=== PATIENT | female | born 1995 ===

== ENCOUNTER 2021-07-06 19:36 | Observation (INO) ==
[2021-07-06] MEDS ORDERED: SODIUM CHLORIDE 0.9% 1000ML 1,000 ML IV SCH (20:00)
[2021-07-06 20:19] LABS: Appearance Urine Clear (Clear); Bilirubin Urine Negative (Negative); Blood Urine Negative (Negative); Color Urine Yellow; Glucose Urine UA Negative (Negative); Ketones Urine Negative (Negative); Leukocyte Esterase Urine Negative (Negative); Nitrite Urine Negative (Negative); Protein Urine Negative (Negative); Specific Gravity Urine 1.003 (1.000-1.030); Urobilinogen Urine Negative (Negative)
--- NOTE | 2021-07-06 20:21 | Emergency Department Note ---
Impression & Plan Vaginal bleeding, Fever, Retained products of conception ED Provider Note INFORMANT: Patient ED PROVIDER(S): Jack Rollins MD CHIEF COMPLAINT: Vaginal bleeding PLAN: Disposition: Admitted Condition: Guarded Outpatient prescription management: none Referral: None MEDICAL DECISION MAKING: Patient presented because of vaginal bleeding and fever. She had a miscarriage and was treated with misoprostol as she declined surgical intervention. Unfortunately she had continued symptoms. She had an IV established. Blood work was obtained. Ultrasound imaging ordered. The patient was found to be significantly more anemic with a hemoglobin of 6.9. No leukocytosis. Chemistry panel unremarkable. Patient's hCG had fallen from 6600 down to 3200. Consultation was made with of MANAGER [facility]MI[facility]. He evaluated the patient in the ER. He did asked for the patient to receive IV Ancef and this was ordered after discussing with pharmacy given her penicillin allergy. The patient was typed originally for blood. She was admitted for operative management and D&E. Triage Nursing notes reviewed and agree them. Vital Signs: reviewed and remarkable for tachycardia Differential diagnosis: Etiologies such as endometritis, retained products, ectopic , dysfunction uterine bleeding, bleeding dyscrasia, trauma, infection, as well as others were entertained. Diagnostics interpreted by me: ECG: none Cardiac Monitoring: Cardiac monitoring ordered by me: The patient was placed on continuous cardiac monitoring and observed. It revealed a sinus tachycardia rhythm at 104 beats per minute without ectopy or evidence of dysrhythmia. Imaging studies: Ultrasound reveals findings concerning for retained products HPI: 7wks June 18 miscarriage Bleeding continued july 01, Seen by Mercedes given Misoprostol x4 Bleeding, cramping, July 05 Fever The patient is a 26year old female who presents to the Emergency Room with complaints of vaginal bleeding. Patient became about 7 weeks ago. She states on June 18 she had a miscarriage. Patient had bleeding that was cont inuing. She was seen July 01 in the ER. OB was consulted. She was seen by Dr Long. The patient states that she did not want to have surgery and was treated with misoprostol. Patient seemed to get somewhat better but then noted bleeding that started again on the , yesterday. She had cramping. Patient developed a fever today. Current pain is rated as 5/10. Patient felt weak and lightheade d. Pt denies LOC, headache,diaphoresis, visual changes, neck pain, chest pain, breathing difficulties, nausea, vomiting, back pain, melena, hematochezia, urinary symptoms, numbness, weakness, lymphadenopathy, rash, or other complaints. ROS: See above HPI for pertinent positives & negatives. A total of 10 systems reviewed and were otherwise negative. PAST MEDICAL HISTORY:See Below , miscarriage PAST SURGICAL HISTORY:See Below, FAMILY HISTORY:See Below SOCIAL HISTORY:See Below, refugee from [facility]. Lives with boyfriend. HOME MEDICATIONS:See Below ALLERGIES:See Below VITALS:See Below PHYSICAL EXAMINATION: GENERAL: Awake, alert, uncomfortable-appearing, in no distress HENT: Normocephalic, atraumatic. Oropharynx unremarkable. EYES: Pale conjunctiva. Sclera non-icteric. NECK: Inspection normal. Non-tender. Supple. No nuchal rigidity. FROM. No masses. RESPIRATORY: Clear to auscultation. No wheezes. No rales. Normal respiratory effort. CARDIAC: Normal rate. Normal rhythm. No murmurs. No rubs. Extremities warm and well perfused. Pulses equal. No JVD. GI: Soft, non-distended. No tenderness to palpation. No rebound or guarding. No masses. : Deferred MUSCULOSKELETAL: Atraumatic. Chest examination reveals no tenderness. The back is symmetrical on inspection without obvious abnormality. There is no CVA tenderness to palpation. No joint edema. LOWER EXTREMITIES: Calves are equal size bilaterally and non-tender. No edema. No discoloration. NEURO: Normal sensorium. No sensory or motor deficits noted. SKIN: No rash or jaundice noted. Jack Rollins MD Past Med/Surg History Medical History Anemia Anxiety Smoker Social History Smoking Status: Current every day smoker Tobacco Type: Cigarettes Feels Safe at Home: Yes Allergies Allergies Allergy/AdvReac Type Severity Reaction Status Date / Time glucose Allergy Mild Hives Unverified 07/06/21 19:53 Penicillins Allergy Mild Cough Unverified 07/06/21 19:53 Home Meds Home Medications Medication Instructions Recorded Confirmed ibuprofen 200 mg tablet (Advil) 0 mg PO DAILY PRN 07/06/21 07/06/21 Previous Rx's Medication Instructions Recorded ferrous sulfate 324 mg (65 mg 324 mg PO DAILY #30 tab 07/07/21 iron) tablet,delayed release ibuprofen 600 mg tablet 600 mg PO Q6H PRN #30 tab 07/07/21 Results & Data (ED) Vital Signs Vital Signs - 24 hr 07/06/21 19:36 07/06/21 19:40 07/06/21 19:46 Temperature 36.4 C L Temperature Source Temporal Artery Scan Pulse Rate 104 H 118 H Pulse Rate [Apical] Pulse Rate [Left Finger] Pulse Rate from SpO2 Sensor Pulse Rhythm Regular Pulse Rhythm [Apical] Pulse Rhythm [Left Finger] Pulse Strength Normal Pulse Strength [Apical] Respiratory Rate 20 16 24 Respiratory Effort / Characteristics Non-Labored Non-Labored Spontaneous Respiratory Depth Normal Normal Respiratory Pattern Regular Blood Pressure 112/75 Blood Pressure [Left Arm] Blood Pressure Mean 87 Blood Pressure Mean [Left Arm] Blood Pressure Position Sitting Blood Pressure Position [Left Arm] Pulse Oximetry 100 100 98 Oxygen Delivery Method Room Air Room Air Room Air Sepsis Recent Fever Within 48 Hours No Sepsis New/Unexplained Change in Mental Status No Sepsis Action Taken by Nursing No Action Required 07/06/21 21:03 07/06/21 21:36 07/06/21 21:45 Temperature Temperature Source Pulse Rate 103 H 108 H Pulse Rate [Apical] Pulse Rate [Left Finger] 102 H Pulse Rate from SpO2 Sensor 106 H Pulse Rhythm Pulse Rhythm [Apical] Pulse Rhythm [Left Finger] Regular Pulse Strength Pulse Strength [Apical] Respiratory Rate 18 22 21 Respiratory Effort / Characteristics Respiratory Depth Normal Respiratory Pattern Blood Pressure Blood Pressure [Left Arm] 147/85 H Blood Pressure Mean Blood Pressure Mean [Left Arm] 105 Blood Pressure Position Blood Pressure Position [Left Arm] Pulse Oximetry 100 100 100 Oxygen Delivery Method Sepsis Recent Fever Within 48 Hours Sepsis New/Unexplained Change in Mental Status Sepsis Action Taken by Nursing 07/06/21 21:46 07/06/21 22:00 07/06/21 22:27 Temperature Temperature Source Pulse Rate 104 H 105 H 109 H Pulse Rate [Apical] Pulse Rate [Left Finger] Pulse Rate from SpO2 Sensor Pulse Rhythm Pulse Rhythm [Apical] Pulse Rhythm [Left Finger] Pulse Strength Pulse Strength [Apical] Respiratory Rate 22 18 20 Respiratory Effort / Characteristics Respiratory Depth Respiratory Pattern Blood Pressure 109/63 113/64 Blood Pressure [Left Arm] Blood Pressure Mean 78 80 Blood Pressure Mean [Left Arm] Blood Pressure Position Blood Pressure Position [Left Arm] Pulse Oximetry 100 100 100 Oxygen Delivery Method Sepsis Recent Fever Within 48 Hours Sepsis New/Unexplained Change in Mental Status Sepsis Action Taken by Nursing 07/06/21 22:30 07/06/21 22:52 07/06/21 23:00 Temperature 37.0 C Temperature Source Oral Pulse Rate 111 H 95 H Pulse Rate [Apical] Pulse Rate [Left Finger] Pulse Rate from SpO2 Sensor 95 H Pulse Rhythm Pulse Rhythm [Apical] Pulse Rhythm [Left Finger] Pulse Strength Pulse Strength [Apical] Respiratory Rate 21 16 Respiratory Effort / Characteristics Respiratory Depth Respiratory Pattern Blood Pressure 122/67 107/59 L Blood Pressure [Left Arm] Blood Pressure Mean 85 75 Blood Pressure Mean [Left Arm] Blood Pressure Position Blood Pressure Position [Left Arm] Pulse Oximetry 100 99 Oxygen Delivery Method Sepsis Recent Fever Within 48 Hours Sepsis New/Unexplained Change in Mental Status Sepsis Action Taken by Nursing 07/06/21 23:30 07/06/21 23:50 07/07/21 00:00 Temperature Temperature Source Pulse Rate 100 H 94 H 93 H Pulse Rate [Apical] Pulse Rate [Left Finger] 86 Pulse Rate from SpO2 Sensor 100 H 95 H 96 H Pulse Rhythm Pulse Rhythm [Apical] Pulse Rhythm [Left Finger] Regular Pulse Strength Pulse Strength [Apical] Respiratory Rate 12 20 19 Respiratory Effort / Characteristics Non-Labored Respiratory Depth Normal Respiratory Pattern Blood Pressure 103/65 109/62 Blood Pressure [Left Arm] 109/62 Blood Pressure Mean 77 77 Blood Pressure Mean [Left Arm] 77 Blood Pressure Position Blood Pressure Position [Left Arm] Pulse Oximetry 99 100 100 Oxygen Delivery Method Room Air Sepsis Recent Fever Within 48 Hours Sepsis New/Unexplained Change in Mental Status Sepsis Action Taken by Nursing 07/07/21 00:24 07/07/21 00:30 07/07/21 00:43 Temperature 36.8 C Temperature Source Oral Pulse Rate 89 84 Pulse Rate [Apical] Pulse Rate [Left Finger] Pulse Rate from SpO2 Sensor 88 87 Pulse Rhythm Pulse Rhythm [Apical] Pulse Rhythm [Left Finger] Pulse Strength Pulse Strength [Apical] Respiratory Rate 23 21 Respiratory Effort / Characteristics Respiratory Depth Respiratory Pattern Blood Pressure 108/60 104/60 Blood Pressure [Left Arm] Blood Pressure Mean 76 74 Blood Pressure Mean [Left Arm] Blood Pressure Position Blood Pressure Position [Left Arm] Pulse Oximetry 100 99 Oxygen Delivery Method Sepsis Recent Fever Within 48 Hours Sepsis New/Unexplained Change in Mental Status Sepsis Action Taken by Nursing 07/07/21 00:46 07/07/21 01:11 07/07/21 01:12 Temperature 36.4 C L 36.8 C 36.7 C Temperature Source Oral Temporal Artery Scan Temporal Artery Scan Pulse Rate 90 113 H Pulse Rate [Apical] 104 H Pulse Rate [Left Finger] Pulse Rate from SpO2 Sensor Pulse Rhythm Regular Pulse Rhythm [Apical] Regular Pulse Rhythm [Left Finger] Pulse Strength Normal Pulse Strength [Apical] Normal Respiratory Rate 22 20 20 Respiratory Effort / Characteristics Non-Labored Spontaneous Respiratory Depth Normal Respiratory Pattern Regular Blood Pressure 100/67 106/64 Blood Pressure [Left Arm] 106/62 Blood Pressure Mean 78 78 Blood Pressure Mean [Left Arm] 76 Blood Pressure Position Semi-fowlers Blood Pressure Position [Left Arm] Semi-fowlers Pulse Oximetry 100 100 100 Oxygen Delivery Method Room Air Sepsis Recent Fever Within 48 Hours Sepsis New/Unexplained Change in Mental Status Sepsis Action Taken by Nursing Laboratory Data Result diagrams: 07/06/21 20:02 07/06/21 20:02 Lab Results 07/06/21 07/06/21 07/06/21 Range/Units 20:00 20:02 20:02 WBC 8.24 (4.8-10.8) K/uL RBC 2.31 L (4.2-5.4) M/uL Hgb 6.9 L* (12.0-16.0) g/dL Hct 20.8 L* (37-47) % MCV 90.0 (80-100) fL MCH 29.9 (25-34) pg MCHC 33.2 (32-36) g/dL RDW Std Deviation 42.3 (36.4-46.3) fL RDW Coeff of Wilfrid 13.1 (11.5-14.5) % Plt Count 365 (130-400) K/uL MPV 9.2 (7.4-10.4) fL Immature Gran % (Auto) 0.2 % Neut % (Auto) 53.7 % Lymph % (Auto) 36.3 % [place] % (Auto) 6.8 % Eos % (Auto) 2.3 % Baso % (Auto) 0.7 % Neut # (Auto) 4.42 (1.4-6.5) K/uL Lymph # (Auto) 2.99 (1.2-3.4) K/uL [place] # (Auto) 0.56 (0.11-0.59) K/uL Eos # (Auto) 0.19 (0-0.5) K/uL Baso # (Auto) 0.06 (0-0.2) K/uL Immature Gran # (Auto) 0.02 (0.00-0.02) K/uL Polychromasia 1+ Sodium 138 (136-145) mmol/L Potassium 3.8 (3.5-5.1) mmol/L Chloride 106 (98-107) mmol/L Carbon Dioxide 27 (21-32) mmol/L Anion Gap 5 (3-11) BUN 11 (6-23) mg/dl Creatinine 0.51 L (0.6-1.2) mg/dl Est Cr Clr Drug Dosing 125.0 ml/min Est GFR ( Amer) > 150.0 ml/min Est GFR (Non-Af Amer) 131.8 ml/min BUN/Creatinine Ratio 21.6 H (10-20) Glucose 115 H (70-99(Fasting)) mg/dl Calcium 8.4 L (8.5-10.1) mg/dl Total Bilirubin 0.2 (0.2-1.0) mg/dl AST 15 (13-39) U/L ALT 10 (7-52) U/L Alkaline Phosphatase 31 L (34-104) U/L Total Protein 6.0 (6.0-8.3) gm/dl Albumin 3.8 (3.4-5.0) gm/dl Globulin 2.2 L (2.5-4.0) gm/dl Albumin/Globulin Ratio 1.7 (0.9-2) HCG, Quant mIU/ml Urine Color Yellow Urine Appearance Clear (Clear) Urine pH 8.0 H (4.5-7.5) Ur Specific [place] 1.003 (1.000-1.030) Urine Protein Negative (Negative) Urine Glucose (UA) Negative (Negative) Urine Ketones Negative (Negative) Urine Blood Negative (Negative) Urine Nitrite Negative (Negative) Urine Bilirubin Negative (Negative) Urine Urobilinogen Negative (Negative) Ur Leukocyte Esterase Negative (Negative) SARS-CoV-2, RNA, NAAT (NEGATIVE) Blood Type Blood Type Recheck Antibody Screen Crossmatch 05/14/22 05/14/22 05/14/22 Range/Units 20:02 20:02 23:09 WBC (4.8-10.8) K/uL RBC (4.2-5.4) M/uL Hgb (12.0-16.0) g/dL Hct (37-47) % MCV (80-100) fL MCH (25-34) pg MCHC (32-36) g/dL RDW Std Deviation (36.4-46.3) fL RDW Coeff of Wilfrid (11.5-14.5) % Plt Count (130-400) K/uL MPV (7.4-10.4) fL Immature Gran % (Auto) % Neut % (Auto) % Lymph % (Auto) % [place] % (Auto) % Eos % (Auto) % Baso % (Auto) % Neut # (Auto) (1.4-6.5) K/uL Lymph # (Auto) (1.2-3.4) K/uL [place] # (Auto) (0.11-0.59) K/uL Eos # (Auto) (0-0.5) K/uL Baso # (Auto) (0-0.2) K/uL Immature Gran # (Auto) (0.00-0.02) K/uL Polychromasia Sodium (136-145) mmol/L Potassium (3.5-5.1) mmol/L Chloride (98-107) mmol/L Carbon Dioxide (21-32) mmol/L Anion Gap (3-11) BUN (6-23) mg/dl Creatinine (0.6-1.2) mg/dl Est Cr Clr Drug Dosing ml/min Est GFR ( Amer) ml/min Est GFR (Non-Af Amer) ml/min BUN/Creatinine Ratio (10-20) Glucose (70-99(Fasting)) mg/dl Calcium (8.5-10.1) mg/dl Total Bilirubin (0.2-1.0) mg/dl AST (13-39) U/L ALT (7-52) U/L Alkaline Phosphatase (34-104) U/L Total Protein (6.0-8.3) gm/dl Albumin (3.4-5.0) gm/dl Globulin (2.5-4.0) gm/dl Albumin/Globulin Ratio (0.9-2) HCG, Quant 3265 mIU/ml Urine Color Urine Appearance (Clear) Urine pH (4.5-7.5) Ur Specific [place] (1.000-1.030) Urine Protein (Negative) Urine Glucose (UA) (Negative) Urine Ketones (Negative) Urine Blood (Negative) Urine Nitrite (Negative) Urine Bilirubin (Negative) Urine Urobilinogen (Negative) Ur Leukocyte Esterase (Negative) SARS-CoV-2, RNA, NAAT NEGATIVE (NEGATIVE) Blood Type A Positive Blood Type Recheck Antibody Screen NEGATIVE Crossmatch See Detail 07/06/21 Range/Units 23:59 WBC (4.8-10.8) K/uL RBC (4.2-5.4) M/uL Hgb (12.0-16.0) g/dL Hct (37-47) % MCV (80-100) fL MCH (25-34) pg MCHC (32-36) g/dL RDW Std Deviation (36.4-46.3) fL RDW Coeff of Wilfrid (11.5-14.5) % Plt Count (130-400) K/uL MPV (7.4-10.4) fL Immature Gran % (Auto) % Neut % (Auto) % Lymph % (Auto) % [place] % (Auto) % Eos % (Auto) % Baso % (Auto) % Neut # (Auto) (1.4-6.5) K/uL Lymph # (Auto) (1.2-3.4) K/uL [place] # (Auto) (0.11-0.59) K/uL Eos # (Auto) (0-0.5) K/uL Baso # (Auto) (0-0.2) K/uL Immature Gran # (Auto) (0.00-0.02) K/uL Polychromasia Sodium (136-145) mmol/L Potassium (3.5-5.1) mmol/L Chloride (98-107) mmol/L Carbon Dioxide (21-32) mmol/L Anion Gap (3-11) BUN (6-23) mg/dl Creatinine (0.6-1.2) mg/dl Est Cr Clr Drug Dosing ml/min Est GFR ( Amer) ml/min Est GFR (Non-Af Amer) ml/min BUN/Creatinine Ratio (10-20) Glucose (70-99(Fasting)) mg/dl Calcium (8.5-10.1) mg/dl Total Bilirubin (0.2-1.0) mg/dl AST (13-39) U/L ALT (7-52) U/L Alkaline Phosphatase (34-104) U/L Total Protein (6.0-8.3) gm/dl Albumin (3.4-5.0) gm/dl Globulin (2.5-4.0) gm/dl Albumin/Globulin Ratio (0.9-2) HCG, Quant mIU/ml Urine Color Urine Appearance (Clear) Urine pH (4.5-7.5) Ur Specific [place] (1.000-1.030) Urine Protein (Negative) Urine Glucose (UA) (Negative) Urine Ketones (Negative) Urine Blood (Negative) Urine Nitrite (Negative) Urine Bilirubin (Negative) Urine Urobilinogen (Negative) Ur Leukocyte Esterase (Negative) SARS-CoV-2, RNA, NAAT (NEGATIVE) Blood Type Blood Type Recheck A Positive Antibody Screen Crossmatch Administered Medications Sodium Chloride (Nss 1000ml) 1,000 mls @ 125 mls/hr IV .Q8H STA Stop: 07/07/21 07:00 Last Admin: 07/06/21 23:53 Dose: 125 mls/hr Documented by: [id number] Discontinued Medications Sodium Chloride (Nss 1000ml) 1,000 mls @ 999 mls/hr IV .Q1H1M LIZET Stop: 07/06/21 21:00 Last Infusion: 07/06/21 21:53 Dose: 0 mls/hr Documented by: [id number] Admin: 07/06/21 20:22 Dose: 999 mls/hr Documented by: [id number] Cefazolin Sodium (Ancef 2000mg) 2,000 mg in 15 mls @ 3.75 mls/min IV NOW STA Stop: 07/06/21 23:07 Last Admin: 07/07/21 00:04 Dose: 3.75 mls/min Documented by: [id number] Ketorolac Tromethamine (Ketorolac Tromethamine 15 Mg/Ml Vial) 10 mg IV NOW ONE Stop: 07/06/21 22:28 Last Admin: 07/06/21 22:51 Dose: 10 mg Documented by: [id number] Imaging Data Radiologist's Impression: Pelvis Ultrasound 07/06/21 19:47 US pelvic complete CLINICAL HISTORY: fever, recent miscarriage TECHNIQUE: Real-time sonographic images of the pelvic contents were obtained with transabdominal and transvaginal technique. Comparison: None available at the time of this dictation. FINDINGS: The uterus measures 8.8 x 6.0 x 5.1 cm. The endometrial cavity echo stripe measures 1.5 cm in thickness. Complex material is seen in the endometrium which is hypervascular and appearance. The right ovary measures 3.8 x 2.8 x 2.0 cm. The left ovary measures 3.6 x 2.4 x 2.0 cm. Normal appearance of the ovaries bilaterally. There was no fluid in the cul-de-sac. IMPRESSION: Vascular heterogeneous material in the endometrium measuring 1.5 cm. Correlation with date of miscarriage is recommended as this finding can be seen with retained products of conception. ACT 112: Negative or not required by law. Electronically signed by: Hilton Schneider M.D. 07/06/2021 10:08 PM Discharge Plan Visit Data Chief Complaint: Vaginal Bleeding Stated Complaint: VAGINAL BLEEDING, FEVER ED Provider: Jack Rollins Discharge Problem: Vaginal bleeding, Fever, Retained products of conception Discharge Instructions Interventions: ED Discharge Assessment Last Done: 07/07/21 01:00
[2021-07-06 20:34] LABS: Hematocrit (blood only) 20.8 % (37-47); Hemoglobin 6.9 g/dL (12.0-16.0); Mean Corpuscular Hemoglobin 29.9 pg (25-34); Mean Corpuscular Hgb Conc 33.2 g/dL (32-36); Mean Platelet Volume 9.2 fL (7.4-10.4); Platelet Count 365 K/uL (130-400); RDW Coefficient of Variation 13.1 % (11.5-14.5); RDW Standard Deviation 42.3 fL (36.4-46.3); Red Blood Count 2.31 M/uL (4.2-5.4); White Blood Count 8.24 K/uL (4.8-10.8)
[2021-07-06 20:41] LABS: Basophils # (auto) 0.06 K/uL (0-0.2); Basophils % (auto) 0.7 %; Eosinophils # (auto) 0.19 K/uL (0-0.5); Eosinophils % (auto) 2.3 %; Immature Granulocytes # (auto) 0.02 K/uL (0.00-0.02); Immature Granulocytes % (auto) 0.2 %; Lymphocytes # (auto) 2.99 K/uL (1.2-3.4); Lymphocytes % (auto) 36.3 %; Monocytes # (auto) 0.56 K/uL (0.11-0.59); Monocytes % (auto) 6.8 %; Neutrophils # (auto) 4.42 K/uL (1.4-6.5); Neutrophils % (auto) 53.7 %; Polychromasia 1+
[2021-07-06 20:49] LABS: Alanine Aminotransferase 10 U/L (7-52); Albumin Globulin Ratio 1.7 (0.9-2); Albumin Level 3.8 gm/dl (3.4-5.0); Alkaline Phosphatase 31 U/L (34-104); Anion Gap 5 (3-11); Aspartate Aminotransferase 15 U/L (13-39); BUN Creatinine Ratio 21.6 (10-20); Bilirubin,Total 0.2 mg/dl (0.2-1.0); Blood Urea Nitrogen 11 mg/dl (6-23); Calcium 8.4 mg/dl (8.5-10.1); Carbon Dioxide 27 mmol/L (21-32); Chloride 106 mmol/L (98-107); Est GFR (African American) > 150.0 ml/min; Est GFR (Non-African American) 131.8 ml/min; Globulin 2.2 gm/dl (2.5-4.0); Glucose 115 mg/dl (70-99(Fasting)); Potassium 3.8 mmol/L (3.5-5.1); Sodium 138 mmol/L (136-145)
--- NOTE | 2021-07-06 22:10 | Ultrasound Report ---
US pelvic complete CLINICAL HISTORY: fever, recent miscarriage TECHNIQUE: Real-time sonographic images of the pelvic contents were obtained with transabdominal and transvaginal technique. Comparison: None available at the time of this dictation. FINDINGS: The uterus measures 8.8 x 6.0 x 5.1 cm. The endometrial cavity echo stripe measures 1.5 cm in thickne ss. Complex material is seen in the endometrium which is hypervascular and appearance. The right ovary measures 3.8 x 2.8 x 2.0 cm. The left ovary measures 3.6 x 2.4 x 2.0 cm. Normal appea tereza of the ovaries bilaterally. There was no fluid in the cul-de-sac. IMPRESSION: Vascular heterogeneous material in the endometrium measuring 1.5 cm. Correlation with date of miscarr iage is recommended as this finding can be seen with retained products of conception. ACT 112: Negative or not required by law. Electronically signed by: Hilton Schneider M.D. 07/06/2021 10:08 PM
[2021-07-06] MEDS ORDERED: KETOROLAC TROMETHAMINE 15 MG/ML VIAL IV ONE (22:27)
[2021-07-06] MEDS ORDERED: SODIUM CHLORIDE 0.9% 1000ML 1,000 ML IV STA (23:01)
[2021-07-06] MEDS ORDERED: ceFAZolin 2000MG 2,000 MG/15 ML SYR IV STA (23:04)
[2021-07-06] MEDS ORDERED: SODIUM CHLORIDE 0.9% 250 ML IV PRN (23:35)
--- NOTE | 2021-07-06 23:42 | History & Physical Report ---
Date of Service July 06, 2021 Assessment & Plan (1) Incomplete with delayed or excessive hemorrhage: Plan: Transfuse 1 unit PRBC's Dilation and Evacuation in OR History of Present Illness Chief Complaint: vaginal bleeding Primary Care Provider: LINDA PCP 26 F at about 8-10 weeeks started bleeding last night passing clots and becoming dizzy. She receved Misoprostol earlier this week after refusing to go to the OR and opting for medical treatment. 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 History neg Review of Systems All systems reviewed & are unremarkable except as noted in HPI & below Physical Exam Constitutional: WD/WN, vitals as above Eyes: PERRL, conjunctivae normal, anicteric sclerae Respiratory: normal respiratory effort, lungs clear to auscultation Cardiovascular: RRR, no murmur, no edema Skin: no rashes, warm and dry Neurologic: patellar DTR's 2+ bilat, sensation intact Psychiatric: A+Ox3, euthymic affect Genitourinary: normal external appearance Speculum/Bimanual Exam: + vaginal bleeding Results & Data ([facility]) Vital Signs (Past 12 Hours) Vital Signs Temp Pulse Pulse Resp BP BP Pulse Ox 07/06/21 22:52 37.0 C 07/06/21 22:30 111 H 21 122/67 100 07/06/21 22:27 109 H 20 113/64 100 07/06/21 22:00 105 H 18 100 07/06/21 21:46 104 H 22 109/63 100 07/06/21 21:45 108 H 21 100 07/06/21 21:36 102 H 22 147/85 H 100 07/06/21 21:03 103 H 18 100 07/06/21 19:46 118 H 24 98 07/06/21 19:40 36.4 C L 104 H 16 112/75 100 07/06/21 19:36 20 100 Laboratory Results 07/06/21 07/06/21 07/06/21 20:00 20:02 20:02 WBC 8.24 RBC 2.31 L Hgb 6.9 L* Hct 20.8 L* MCV 90.0 MCH 29.9 MCHC 33.2 RDW Std Deviation 42.3 RDW Coeff of Wilfrid 13.1 Plt Count 365 MPV 9.2 Immature Gran % (Auto) 0.2 Neut % (Auto) 53.7 Lymph % (Auto) 36.3 [place] % (Auto) 6.8 Eos % (Auto) 2.3 Baso % (Auto) 0.7 Neut # (Auto) 4.42 Lymph # (Auto) 2.99 [place] # (Auto) 0.56 Eos # (Auto) 0.19 Baso # (Auto) 0.06 Immature Gran # (Auto) 0.02 Polychromasia 1+ Sodium 138 Potassium 3.8 Chloride 106 Carbon Dioxide 27 Anion Gap 5 BUN 11 Creatinine 0.51 L Est Cr Clr Drug Dosing 125.0 Est GFR ( Amer) > 150.0 Est GFR (Non-Af Amer) 131.8 BUN/Creatinine Ratio 21.6 H Glucose 115 H Calcium 8.4 L Total Bilirubin 0.2 AST 15 ALT 10 Alkaline Phosphatase 31 L Total Protein 6.0 Albumin 3.8 Globulin 2.2 L Albumin/Globulin Ratio 1.7 HCG, Quant Urine Color Yellow Urine Appearance Clear Urine pH 8.0 H Ur Specific [place] 1.003 Urine Protein Negative Urine Glucose (UA) Negative Urine Ketones Negative Urine Blood Negative Urine Nitrite Negative Urine Bilirubin Negative Urine Urobilinogen Negative Ur Leukocyte Esterase Negative SARS-CoV-2, RNA, NAAT Blood Type Antibody Screen 07/06/21 07/06/21 07/06/21 20:02 20:02 23:09 WBC RBC Hgb Hct MCV MCH MCHC RDW Std Deviation RDW Coeff of Wilfrid Plt Count MPV Immature Gran % (Auto) Neut % (Auto) Lymph % (Auto) [place] % (Auto) Eos % (Auto) Baso % (Auto) Neut # (Auto) Lymph # (Auto) [place] # (Auto) Eos # (Auto) Baso # (Auto) Immature Gran # (Auto) Polychromasia Sodium Potassium Chloride Carbon Dioxide Anion Gap BUN Creatinine Est Cr Clr Drug Dosing Est GFR ( Amer) Est GFR (Non-Af Amer) BUN/Creatinine Ratio Glucose Calcium Total Bilirubin AST ALT Alkaline Phosphatase Total Protein Albumin Globulin Albumin/Globulin Ratio HCG, Quant 3265 Urine Color Urine Appearance Urine pH Ur Specific [place] Urine Protein Urine Glucose (UA) Urine Ketones Urine Blood Urine Nitrite Urine Bilirubin Urine Urobilinogen Ur Leukocyte Esterase SARS-CoV-2, RNA, NAAT NEGATIVE Blood Type A Positive Antibody Screen NEGATIVE
[2021-07-07] MEDS ORDERED: LABETALOL HCL IV 5 MG/ML 20ML IV PRN (00:10)
[2021-07-07] MEDS ORDERED: ePHEDrine sulfate 50 MG/ML AMP IV PRN (00:10)
[2021-07-07] MEDS ORDERED: fentaNYL citrate 100 MCG/2 ML VIAL IV PRN (00:10)
[2021-07-07] MEDS ORDERED: PHENYLEPHRINE 100MCG/ML 5ML SYR IV PRN (00:10)
[2021-07-07] MEDS ORDERED: ATROPINE SULFATE 0.1 MG/ML 10ML SYR IV PRN (00:10)
[2021-07-07] MEDS ORDERED: ONDANSETRON INJ 2 MG/ML 2 ML VIAL IV PRN (00:10)
[2021-07-07] MEDS ORDERED: MEPERIDINE HCL 25 MG/ML CARP/VIAL IV PRN (00:10)
[2021-07-07] MEDS ORDERED: HYDROmorphone INJ 1 MG/ML SYRINGE IV PRN (00:10)
--- NOTE | 2021-07-07 00:16 | Anesthesiology Consultation ---
Date of Service July 07, 2021 Assessment & Plan (1) Encounter for pre-operative examination: Chart Review Chart Review: Acceptable Risk for Surgery (emergency) and Patient NOT seen in Pre Admission Testing Consults Requested none History Surgery Operation Date: 07/07/21 01:00 Proposed Procedures p Dilation and Curettage - Bryan Long MD The patient will be transfused one unit of PRBC prior to the OR as per Dr. Long. Height/Weight Height: 5 ft 3 in Weight: 47.8 kg Allergies Allergy/AdvReac Type Severity Reaction Status Date / Time glucose Allergy Mild Hives Unverified 07/06/21 19:53 Penicillins Allergy Mild Cough Unverified 07/06/21 19:53 Medications Home Medications Medication Instructions Recorded Confirmed Last Taken ibuprofen 200 mg tablet (Advil) 0 mg PO DAILY PRN 07/06/21 07/06/21 07/04/21 Active Medications Generic Name Dose Route Start Last Admin Trade Name Freq PRN Reason Stop Dose Admin Sodium Chloride 1,000 mls @ 125 mls/hr 07/06/21 23:01 07/06/21 23:53 Nss 1000ml IV 07/07/21 07:00 125 mls/hr .Q8H STA Administration Past Medical History Medical History Anemia Smoker Social History Smoking Status: Current every day smoker Physical Exam Vital Signs Last Vital Signs Temp 37.0 C 07/06/21 22:52 Pulse 111 H 07/06/21 22:30 Resp 21 07/06/21 22:30 BP 122/67 07/06/21 22:30 Pulse Ox 100 07/06/21 22:30 Testing Laboratory Results 07/06/21 20:02 07/06/21 20:02 HCG, Quant 3265 mIU/ml 07/06/21 20:02 Urine Color Yellow 07/06/21 20:00 Urine Appearance Clear (Clear) 07/06/21 20:00 Urine pH 8.0 (4.5-7.5) H 07/06/21 20:00 Ur Specific [place] 1.003 (1.000-1.030) 07/06/21 20:00 Urine Protein Negative (Negative) 07/06/21 20:00 Urine Glucose (UA) Negative (Negative) 07/06/21 20:00 Urine Ketones Negative (Negative) 07/06/21 20:00 Urine Nitrite Negative (Negative) 07/06/21 20:00 Ur Leukocyte Esterase Negative (Negative) 07/06/21 20:00 Blood Type A Positive 07/06/21 20:02 Antibody Screen NEGATIVE 07/06/21 20:02 07/06/21 20:02 HCG, Quant 3269
[2021-07-07] MEDS ORDERED: fentaNYL citrate 100 MCG/2 ML VIAL ONE (00:25)
[2021-07-07] MEDS ORDERED: PROPOFOL IV EMULSION 10 MG/ML 20 ML VIAL IV ONE (00:29)
[2021-07-07] MEDS ORDERED: LIDOCAINE 2% 2 ML VIAL/AMP(20MG/ML) INFIL ONE (00:29)
[2021-07-07] MEDS ORDERED: DEXAMETHASONE SOD INJ 4 MG/ML VIAL ONE (00:30)
[2021-07-07] MEDS ORDERED: ONDANSETRON INJ 2 MG/ML 2 ML VIAL ONE (00:30)
[2021-07-07] MEDS ORDERED: MIDAZOLAM HCL 1 MG/ML 2ML VIAL ONE (01:29)
[2021-07-07] MEDS ORDERED: PHENYLEPHRINE 100MCG/ML 5ML SYR ONE (01:50)
--- NOTE | 2021-07-07 01:59 | Post Operative Brief Note ---
Immediate Post Op Note v1 Date of Surgery July 07, 2021 Pre & Post Diagnosis Operation Date: 07/07/21 01:00 Pre-Op Diagnosis: Incomplete Post-Op Diagnosis: Incomplete I identified the patient and participated in the time-out.: Yes Procedure Operation Date: 07/07/21 01:00 Actual Procedures p Dilation and Evacuation(Not Applicable) - Bryan Long MD Surgeon Bryan Long MD Developing Machine Tender none Estimated Blood Loss 5 Findings Consistent with Post-Op Diagnosis products of conception Fluids LR 1300 ml Anesthesia Type General Complications none Disposition Accompanied Patient To Recovery: Yes Overlapping Procedure I was present for: the critical portions of procedure. I was immediately available: during the entire case. Back up surgeon: was not required during procedure.
[2021-07-07] MEDS ORDERED: OXYTOCIN 10 UNITS/ML 10ML VIAL ONE (02:04)
--- NOTE | 2021-07-07 02:55 | Anesthesiology Progress Note ---
Date of Service July 07, 2021 Anesthesia Post Procedure Vital Signs Vital Signs: Temp Pulse Pulse Pulse Resp BP BP 07/07/21 02:20 36.3 C L 63 16 90/53 L 07/07/21 01:12 36.7 C 104 H 20 106/62 07/07/21 01:11 36.8 C 113 H 20 106/64 07/07/21 00:46 36.4 C L 90 22 100/67 07/07/21 00:43 36.8 C 07/07/21 00:30 84 21 104/60 07/07/21 00:24 89 23 108/60 07/07/21 00:00 93 H 86 19 109/62 109/62 07/06/21 23:50 94 H 20 103/65 07/06/21 23:30 100 H 12 07/06/21 23:00 95 H 16 107/59 L 07/06/21 22:52 37.0 C 07/06/21 22:30 111 H 21 122/67 07/06/21 22:27 109 H 20 113/64 07/06/21 22:00 105 H 18 07/06/21 21:46 104 H 22 109/63 07/06/21 21:45 108 H 21 07/06/21 21:36 102 H 22 147/85 H 07/06/21 21:03 103 H 18 07/06/21 19:46 118 H 24 07/06/21 19:40 36.4 C L 104 H 16 112/75 07/06/21 19:36 20 Pulse Ox 07/07/21 02:20 100 07/07/21 01:12 100 07/07/21 01:11 100 07/07/21 00:46 100 07/07/21 00:43 07/07/21 00:30 99 07/07/21 00:24 100 07/07/21 00:00 100 07/06/21 23:50 100 07/06/21 23:30 99 07/06/21 23:00 99 07/06/21 22:52 07/06/21 22:30 100 07/06/21 22:27 100 07/06/21 22:00 100 07/06/21 21:46 100 07/06/21 21:45 100 07/06/21 21:36 100 05/14/22 21:03 100 07/06/21 19:46 98 07/06/21 19:40 100 07/06/21 19:36 100 Transfer of Care Handoff Completed per policy Notes Mental Status: alert / awake / arousable Patient Amnestic to Procedure: Yes Nausea / Vomiting: adequately controlled Pain: adequately controlled Airway Patency, RR, SpO2: stable & adequate BP & HR: stable & adequate Hydration State: stable & adequate Anesthetic Complications: no major complications apparent and Pt Satisfied with anesthetic care Notes: The patient is awake and comfortable. Dr. Long will follow her hgb level.
[2021-07-07] MEDS ORDERED: OXYTOCIN 20 UNITS in LACTATED RINGER'S 1,000 ML IV SCH (03:35)
[2021-07-07] MEDS ORDERED: IBUPROFEN 600 MG TAB PO PRN ×2 (03:35)
[2021-07-07 04:41] LABS: Hematocrit (blood only) 22.7 % (37-47); Hemoglobin 7.6 g/dL (12.0-16.0); Mean Corpuscular Hemoglobin 29.6 pg (25-34); Mean Corpuscular Hgb Conc 33.5 g/dL (32-36); Mean Corpuscular Volume 88.3 fL (80-100); Mean Platelet Volume 9.7 fL (7.4-10.4); Platelet Count 320 K/uL (130-400); RDW Coefficient of Variation 13.3 % (11.5-14.5); RDW Standard Deviation 43.4 fL (36.4-46.3); Red Blood Count 2.57 M/uL (4.2-5.4); White Blood Count 11.93 K/uL (4.8-10.8)
--- NOTE | 2021-07-07 10:14 | Operative Report (OR) ---
DATE OF SURGERY: 07/07/2021. PREOPERATIVE DIAGNOSIS: Incomplete . POSTOPERATIVE DIAGNOSIS: Incomplete . PROCEDURE: Dilation and evacuation. SURGEON: Bryan Long MD. DRIP BOX TENDER: None. ANESTHESIA: General. CLINICAL HISTORY: The patient is a 26-year-old female, para 1-0-0-1, presents to the ER with bleedin g. The patient had an incomplete and was prepped for the OR. She received 2 grams of Ancef preop. DESCRIPTION OF PROCEDURE: Under satisfactory general anesthesia, the patient was prepped and draped in the usual sterile fashion. Red rubber catheter was used to empty the bladder. A timeout was call ed prior to the start of the procedure. Uterus measured approximately 8-week size. Weighted speculu m was placed in the posterior vault of the vagina. Allis clamp was used to grab the anterior lip of the cervix. The cervix was sounded to approximately 8 cm and a #8 curved curette. That curette was introduced suctioning out products of conception. After this, a sharp endometrial curette was then u sed curetting out minimal amounts of tissue. 20 units of Pitocin was added to the IV. No active ble eding was noted. This procedure was then terminated. All remaining instruments were then removed. The final sponge, needle and instrument counts were found to be correct. EBL 5 mL and total fluids 1 300 mL and urine 100 mL. The patient was stable and moved to recovery room. She will be placed in o bservation and will have CBC to determine if she needs further blood. Job ID: [id number]
== END 2021-07-07 08:50 | disposition home or self-care (01) ==
LOC: ED 19:36 → 4E1 07-07 01:00 → OR 07-07 01:00 → MERGE 07-07 03:33
DX: R50.9 Fever, unspecified; F17.210 Nicotine dependence, cigarettes, uncomplicated; O03.1 Delayed or excessive hemorrhage following incomplete spontaneous abortion; O73.1 Retained portions of placenta and membranes, without hemorrhage; Z88.0 Allergy status to penicillin; Z3A.01 Less than 8 weeks gestation of pregnancy; Z91.018 Allergy to other foods